=== PATIENT | male | born 1930 | race Caucasian/White ===

== ENCOUNTER 2018-09-07 15:39 | Observation (INO) ==
[2018-09-07] MEDS ORDERED: Ondansetron 4 MG/2 ML VIAL IVP ONE (15:46)
[2018-09-07] MEDS ORDERED: 0.9 % Sodium Chloride 500 ML IVC ONE (15:46)
--- NOTE | 2018-09-07 15:52 | Emergency Department Note ---
Disposition Clinical Impression: JERRI (acute kidney injury), Near syncope, History of coronary artery disease Disposition: Admitted As Inpatient Condition: Fair Referrals: Matthew Scruggs MD [Primary Care Provider] - Time of Disposition: 17:42 General Adult HPI - General Time Seen by Provider: 09/07/18 15:46 Source: patient, family Mode of arrival: ambulatory Limitations: no limitations Nursing Notes Reviewed: Yes Vital Signs Reviewed: Yes - History of Present Illness HPI Narrative: A 8-year-old male with history of hypertension, coronary bypass in 2011, NON mechanical valve replacement presents for evaluation of shortness of breath. 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 Patient was seen in the urology office earlier today. States that he had his indwelling Begum catheter changed. States that he went home and noted increasing blood in his Begum catheter. States that he wanted to get rechecked screens returned to the urology office. While in the office the patient was sitting all sudden became dizzy and lightheaded but no syncope. Patient was not complaining of any chest pain but was diaphoretic and vomiting. Patient had room air sat of 89% requiring 2 L. Patient does not have history of COPD, CHF or requiring home oxygen. Denies any focal neurologic deficits. No slurred speech. Patient denies any chest pain. States he is feeling well earlier today. Denies any blood thinners. States he does take aspirin. Pain Scale: 0 - Related Data Home Medications Medication Instructions Recorded Confirmed Aspirin [Lo-Dose Aspirin EC] 81 mg PO DAILY 11/17/17 09/07/18 Atorvastatin [Lipitor] 40 mg PO HS 11/17/17 09/07/18 Gabapentin [Neurontin] 300 mg PO HS 11/17/17 09/07/18 Garlic 1,000 mg PO DAILY 11/17/17 09/07/18 Metoprolol [Lopressor] 25 mg PO BID 11/17/17 09/07/18 Niacin [Plain Niacin] 500 mg PO DAILY 11/17/17 09/07/18 [place]-3S/Dha/Epa/Fish Oil [Fish 1 cap PO BID 11/17/17 09/07/18 Oil 1,200 mg Softgel] amLODIPine [Norvasc] 2.5 mg PO QAM 11/17/17 09/07/18 amLODIPine [Norvasc] 5 mg PO QPM 11/17/17 09/07/18 Mag Hydrox/Al Hydrox/Simeth 15 ml PO Q6HR PRN 09/07/18 09/07/18 [Maalox] Allergies Allergy/AdvReac Type Severity Reaction Status Date / Time No Known Allergies Allergy Verified 11/17/17 10:13 All systems ED: reviewed and negative except as stated. Constitutional: Denies: fever Cardiovascular: Denies: chest pain Respiratory: Denies: cough Gastrointestinal: Reports: nausea, vomiting. Denies: abdominal pain Neurological: Denies: weakness Past Medical History - Past Medical History Source: patient Medical history: Reports: coronary artery disease, GERD, hyperlipidemia, hypertension Surgical history: Reports: other Psychiatric history: Reports: no psych history - Social History Smoking Status: Unknown if ever smoked Smokeless Tobacco Status: No Alcohol use: Reports: none Drug use: Reports: none Physical Exam - General Limitations: no limitations General appearance: alert, other (Pale) - Head Head exam: atraumatic, normocephalic, normal inspection - Eye Eye exam: Present: normal appearance, PERRL, EOMI - ENT ENT exam: normal exam, normal oropharynx, mucous membranes moist - Neck Neck exam: Present: normal inspection, full ROM, trachea midline - Chest Chest inspection: Present: normal inspection - Respiratory Respiratory exam: Present: normal lung sounds bilaterally. Absent: respiratory distress - Cardiovascular Cardiovascular exam: Present: regular rate, normal rhythm, systolic murmur (3 out of 6) - Abdominal Exam Abdominal exam: Present: soft, Non-Tender. Absent: guarding, rebound - Extremities Exam Extremities exam: Present: normal inspection. Absent: pedal edema - Back Exam Back exam: Present: normal inspection - Neurological Exam Neurological exam: Present: alert, oriented X3, CN II-XII intact - Expanded Neurological Exam Patient oriented to: Present: person, place, time Speech: Present: fluid speech Cranial nerves: EOM function (II, III, IV, ): Normal, facial sensation (V): Normal, facial palsy (VII): Normal, spinal accessory function (XI): Normal, tongue deviation (XII): Normal Motor strength - LUE: 5/5 Motor strength - RUE: 5/5 Motor strength - LLE: 5/5 Motor strength - RLE: 5/5 Coma Scale Eye Opening: Spontaneous Coma Scale Motor Response: Obeys Commands Coma Scale Verbal Response: Oriented Coma Scale Total: 15 - Skin Skin exam: Present: warm, dry, intact, normal color Course Course Narrative: Patient seen and examined. Patient is not a stroke alert. Nonfocal neurologic exam. Does have a cardiac history. Patient was noted to be hypoxic. Patient has one episode of emesis. Concerns for cardiopulmonary cause of his near- syncope. Patient will get basic labs including anti-medics IV fluids. Disposition anticipated for admission. - Reevaluation(s) Reevaluation #1: Patient seen and examined. Patient's resting comfortably. Patient's asymptomatic. Family reported that urology did come in a pass a catheter. Appe ars to be functioning. Patient was not given aspirin as the patient does appear to have grossly bloody urine. Given the patient's diaphoresis nausea vomiting with concerns of near syncope patient will be admitted. Patient does have notable murmur. Patient is agreeable with said plan of care. Time: 17:37 Vital Signs Temperature 97.7 F 09/07/18 15:43 Pulse Rate 69 09/07/18 15:43 Respiratory Rate 20 09/07/18 15:43 Blood Pressure 122/80 09/07/18 15:43 O2 Sat by Pulse Oximetry 94 09/07/18 15:43 Temperature 97.7 F 09/07/18 15:43 Pulse Rate 69 09/07/18 15:43 Respiratory Rate 20 09/07/18 15:43 Blood Pressure 122/80 09/07/18 15:43 O2 Sat by Pulse Oximetry 94 09/07/18 15:43 Oxygen Delivery Oxygen Delivery Nasal Cannula Medical Decision Making - [facility] Narrative Medical decision making narrative: Patient presented for concerns of near-syncope. 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 Patient was seen urology for catheter issues. Urology was in the ED and did advance catheter which does not be functioning properly now. Patient initially was hypoxic with room air 89%. Patient's on 2 L nasal cannula. Patient also was nauseous and diaphoretic. Patient vomited once. Does have known coronary artery disease with triple bypass and a heart valve. Patient is not anticoagulated. Patient will be admitted for near-syncope episode. Patient does appear to have a notable murmur and would recommend admission for serial troponins as well as an echo. Patient does have some mild AK I was given IV fluids. Patient is agreeable said plan of care. CT scan of the head was not obtained as the patient does not have any focal neurologic deficits and no notable trauma. Patient was not given aspirin as the patient has been having gross hematuria in his catheter bag. No concerns for PE and aortic dissection. - Lab Data Lab results reviewed: Yes I reviewed the patient's lab results. Result diagrams: 09/07/18 16:01 09/07/18 16:01 Lab Results 09/07/18 09/07/18 09/07/18 Range/Units 16:01 16: 16:01 WBC 4.8 (4.3-11.1) K/mcL RBC 4.27 (4.19-5.50) M/mcL Hgb 13.3 (12.9-16.9) g/dL Hct 40.0 (37.5-50.1) % MCV 93.7 (83.0-100.0) fL MCH 31.1 (28.0-33.3) pg MCHC 33.3 (31.6-35.5) g/dL RDW 14.0 (11.5-14.5) % Plt Count 179 (140-400) K/mcL MPV 10.3 (9.4-12.4) fL Seg Neutrophils % 80.0 % Band Neutrophils % 2.0 (0-4) % Lymphocytes % 16.0 % Monocytes % 2.0 % Neutrophils # 3.9 (1.6-8.9) K/mcL Lymphocytes # 0.8 (0.6-4.6) K/mcL Monocytes # 0.1 (0.0-1.3) K/mcL Reactive Lymphocytes Present A (Not Present) Platelet Estimate Normal (Normal) PT 14.2 H (9.4-12.1) Seconds INR 1.3 Sodium (136-145) mEq/L Potassium (3.5-5.1) mEq/L Chloride (98-107) mEq/L Carbon Dioxide (23-29) mEq/L BUN (8-23) mg/dL Creatinine (0.70-1.30) mg/dL Est GFR ( Amer) (> 60) Est GFR (Non-Af Amer) (> 60) BUN/Creatinine Ratio (6-26) Glucose (70-105) mg/dL Calculated Osmolality (280-300) Calcium (8.6-10.3) mg/dL Troponin I (< 0.04) ng/mL B-Natriuretic Peptide 129 H (Less than 100) pg/mL Blood Type Antibody Screen 09/07/18 09/07/18 Range/Units 16:01 16:37 WBC (4.3-11.1) K/mcL RBC (4.19-5.50) M/mcL Hgb (12.9-16.9) g/dL Hct (37.5-50.1) % MCV (83.0-100.0) fL MCH (28.0-33.3) pg MCHC (31.6-35.5) g/dL RDW (11.5-14.5) % Plt Count (140-400) K/mcL MPV (9.4-12.4) fL Seg Neutrophils % % Band Neutrophils % (0-4) % Lymphocytes % % Monocytes % % Neutrophils # (1.6-8.9) K/mcL Lymphocytes # (0.6-4.6) K/mcL Monocytes # (0.0-1.3) K/mcL Reactive Lymphocytes (Not Present) Platelet Estimate (Normal) PT (9.4-12.1) Seconds INR Sodium 137 (136-145) mEq/L Potassium 3.9 (3.5-5.1) mEq/L Chloride 105 (98-107) mEq/L Carbon Dioxide 26 (23-29) mEq/L BUN 30 H (8-23) mg/dL Creatinine 1.56 H (0.70-1.30) mg/dL Est GFR ( Amer) 51 L (> 60) Est GFR (Non-Af Amer) 42 L (> 60) BUN/Creatinine Ratio 19 (6-26) Glucose 115 H (70-105) mg/dL Calculated Osmolality 291 (280-300) Calcium 9.3 (8.6-10.3) mg/dL Troponin I < 0.03 (< 0.04) ng/mL B-Natriuretic Peptide (Less than 100) pg/mL Blood Type B POSITIVE Antibody Screen POSITIVE - Radiology Data Radiology results reviewed: Yes I reviewed the patient's radiology results. Chest X-Ray 09/07/18 15:46 IMPRESSION: No evidence of pulmonary edema or focal infiltrate D/ / Juvenal Jones MD / Juvenal Jones MD Interpreting Provider: Juvenal Jones MD - EKG Data EKG #1 EKG attestation: Yes I reviewed and interpreted this EKG. EKG shows normal: sinus rhythm Rate: normal Rhythm: NSR [place]/QRS: normal Q waves: v1 T wave inversions noted in: aVL Interpretation: no acute changes, nonspecific ST-T wave changes S.B.A.R. - S.B.A.RDoreen Situation: Demographics Background: Presenting Complaint Assessment: Vital Signs, Course and respsone to treatment, Patient/Family Expectation Recommendation: Barrier(s) to disposition, Recommendation based on pending studies, treatments, or consults S.B.A.RDoreen Report Given to: Dr. Kelsi Major Repor Time: 17:52 Attestation Statement - Attestation Attestation: I, Jv Vogel DO, examined this patient [id number] and my medical decision-making was reviewed with Dr. Sage Maher, Resident Physician. I agree with the documented findings, disposition and treatment plan as described except to the extent set forth below. I personally supervised and was present for the kraus/critical portions of the procedures completed by the resident documented below. Please see my progress notes for details.
--- NOTE | 2018-09-07 16:22 | Event Note ---
Date of Encounter: 09/07/18 Time of Encounter: 16:21 Patient was evaluated in the emergency department. Patient's catheter balloon was deflated and I was able to advance the patient's catheter into the bladder with clear urine returned into the catheter bag. Patient will need to keep this catheter in. Expectation that he will have some blood around the meatus as well as around the catheter for next day or 2. Please call with any questions.
[2018-09-07 16:34] LABS: Hemoglobin 13.3 g/dL (12.9-16.9); Mean Corpuscular HGB Conc 33.3 g/dL (31.6-35.5); Mean Corpuscular Hemoglobin 31.1 pg (28.0-33.3); Mean Corpuscular Volume 93.7 fL (83.0-100.0); Mean Platelet Volume 10.3 fL (9.4-12.4); Platelet Count 179 K/mcL (140-400); Red Blood Count 4.27 M/mcL (4.19-5.50)
[2018-09-07 16:42] LABS: INR 1.3; Prothrombin Time 14.2 Seconds (9.4-12.1)
[2018-09-07 16:46] LABS: BUN/Creatinine Ratio 19 (6-26); Blood Urea Nitrogen 30 mg/dL (8-23); Calcium 9.3 mg/dL (8.6-10.3); Carbon Dioxide 26 mEq/L (23-29); Chloride 105 mEq/L (98-107); Glucose 115 mg/dL (70-105); Osmolality,Calculated 291 (280-300); Potassium 3.9 mEq/L (3.5-5.1); Sodium 137 mEq/L (136-145); Troponin I < 0.03 ng/mL (< 0.04); eGFR For Non-African Americans 42 (> 60)
[2018-09-07 17:05] LABS: Lymphocytes # 0.8 K/mcL (0.6-4.6); Monocytes # 0.1 K/mcL (0.0-1.3); Neutrophils # 3.9 K/mcL (1.6-8.9); Platelet Estimate Normal (Normal); Reactive Lymphocytes Present (Not Present)
--- NOTE | 2018-09-07 18:30 | Emergency Department Note ---
Disposition Clinical Impression: JERRI (acute kidney injury), Near syncope, History of coronary artery disease Disposition: Admitted As Inpatient Condition: Fair Referrals: Matthew Scruggs MD [Primary Care Provider] - Time of Disposition: 18:30 General Adult HPI - General Chief complaint: ED Dizziness Stated complaint: Xuan Time Seen by Provider: 09/07/18 15:46 Source: patient, family Mode of arrival: ambulatory Limitations: no limitations - History of Present Illness Pain Scale: 0 - Related Data Home Medications Medication Instructions Recorded Confirmed Aspirin [Lo-Dose Aspirin EC] 81 mg PO DAILY 11/17/17 09/07/18 Atorvastatin [Lipitor] 40 mg PO HS 11/17/17 09/07/18 Gabapentin [Neurontin] 300 mg PO HS 11/17/17 09/07/18 Garlic 1,000 mg PO DAILY 11/17/17 09/07/18 Metoprolol [Lopressor] 25 mg PO BID 11/17/17 09/07/18 Niacin [Plain Niacin] 500 mg PO DAILY 11/17/17 09/07/18 [place]-3S/Dha/Epa/Fish Oil [Fish 1 cap PO BID 11/17/17 09/07/18 Oil 1,200 mg Softgel] amLODIPine [Norvasc] 2.5 mg PO QAM 11/17/17 09/07/18 amLODIPine [Norvasc] 5 mg PO QPM 11/17/17 09/07/18 Mag Hydrox/Al Hydrox/Simeth 15 ml PO Q6HR PRN 09/07/18 09/07/18 [Maalox] Allergies Allergy/AdvReac Type Severity Reaction Status Date / Time No Known Allergies Allergy Verified 11/17/17 10:13 Constitutional: Denies: fever Cardiovascular: Denies: chest pain Respiratory: Denies: cough Gastrointestinal: Reports: nausea, vomiting. Denies: abdominal pain Neurological: Denies: weakness Past Medical History - Past Medical History Medical history: Reports: coronary artery disease, GERD, hyperlipidemia, hypertension Surgical history: Reports: other Psychiatric history: Reports: no psych history - Social History Smoking Status: Unknown if ever smoked Smokeless Tobacco Status: No Alcohol use: Reports: none Drug use: Reports: none Physical Exam - General Limitations: no limitations General appearance: alert, other (Pale) Course Vital Signs Temperature 97.7 F 09/07/18 15:43 Pulse Rate 69 09/07/18 15:43 Respiratory Rate 20 09/07/18 15:43 Blood Pressure 122/80 09/07/18 15:43 O2 Sat by Pulse Oximetry 94 09/07/18 15:43 Temperature 97.7 F 09/07/18 15:43 Pulse Rate 69 09/07/18 15:43 Respiratory Rate 20 09/07/18 15:43 Blood Pressure 122/80 09/07/18 15:43 O2 Sat by Pulse Oximetry 94 09/07/18 15:43 Oxygen Delivery Oxygen Delivery Nasal Cannula Medical Decision Making - Lab Data Result diagrams: 09/07/18 16:01 09/07/18 16:01 Lab Results 09/07/18 09/07/18 09/07/18 Range/Units 16: 16: 16:01 WBC 4.8 (4.3-11.1) K/mcL RBC 4.27 (4.19-5.50) M/mcL Hgb 13.3 (12.9-16.9) g/dL Hct 40.0 (37.5-50.1) % MCV 93.7 (83.0-100.0) fL MCH 31.1 (28.0-33.3) pg MCHC 33.3 (31.6-35.5) g/dL RDW 14.0 (11.5-14.5) % Plt Count 179 (140-400) K/mcL MPV 10.3 (9.4-12.4) fL Seg Neutrophils % 80.0 % Band Neutrophils % 2.0 (0-4) % Lymphocytes % 16.0 % Monocytes % 2.0 % Neutrophils # 3.9 (1.6-8.9) K/mcL Lymphocytes # 0.8 (0.6-4.6) K/mcL Monocytes # 0.1 (0.0-1.3) K/mcL Reactive Lymphocytes Present A (Not Present) Platelet Estimate Normal (Normal) PT 14.2 H (9.4-12.1) Seconds INR 1.3 Sodium (136-145) mEq/L Potassium (3.5-5.1) mEq/L Chloride (98-107) mEq/L Carbon Dioxide (23-29) mEq/L BUN (8-23) mg/dL Creatinine (0.70-1.30) mg/dL Est GFR ( Amer) (> 60) Est GFR (Non-Af Amer) (> 60) BUN/Creatinine Ratio (6-26) Glucose (70-105) mg/dL Calculated Osmolality (280-300) Calcium (8.6-10.3) mg/dL Troponin I (< 0.04) ng/mL B-Natriuretic Peptide 129 H (Less than 100) pg/mL Blood Type Antibody Screen 09/07/18 09/07/18 Range/Units 16:01 16:37 WBC (4.3-11.1) K/mcL RBC (4.19-5.50) M/mcL Hgb (12.9-16.9) g/dL Hct (37.5-50.1) % MCV (83.0-100.0) fL MCH (28.0-33.3) pg MCHC (31.6-35.5) g/dL RDW (11.5-14.5) % Plt Count (140-400) K/mcL MPV (9.4-12.4) fL Seg Neutrophils % % Band Neutrophils % (0-4) % Lymphocytes % % Monocytes % % Neutrophils # (1.6-8.9) K/mcL Lymphocytes # (0.6-4.6) K/mcL Monocytes # (0.0-1.3) K/mcL Reactive Lymphocytes (Not Present) Platelet Estimate (Normal) PT (9.4-12.1) Seconds INR Sodium 137 (136-145) mEq/L Potassium 3.9 (3.5-5.1) mEq/L Chloride 105 (98-107) mEq/L Carbon Dioxide 26 (23-29) mEq/L BUN 30 H (8-23) mg/dL Creatinine 1.56 H (0.70-1.30) mg/dL Est GFR ( Amer) 51 L (> 60) Est GFR (Non-Af Amer) 42 L (> 60) BUN/Creatinine Ratio 19 (6-26) Glucose 115 H (70-105) mg/dL Calculated Osmolality 291 (280-300) Calcium 9.3 (8.6-10.3) mg/dL Troponin I < 0.03 (< 0.04) ng/mL B-Natriuretic Peptide (Less than 100) pg/mL Blood Type B POSITIVE Antibody Screen POSITIVE Attestation Statement - Attestation Attestation: I, Jv Vogel DO, examined this patient [id number] and my medical decision-making was reviewed with Dr. Sage Maher, Resident Physician. I agree with the documented findings, disposition and treatment plan as described except to the extent set forth below. I personally supervised and was present for the kraus/critical portions of the procedures completed by the resident doc umented below. Please see my progress notes for details. 88-year-old male presents emergency room for evaluation of near-syncope. Patient was seen in the urology office today to have a Begum catheter replaced. The procedure was performed and then shortly afterwards the patient was having bright red blood from the Begum catheter and discomfort. He sat down on the waiting room and the urology office to be evaluated felt lightheaded and almost passed out. Patient denied any chest pain shortness of breath headache vision changes nausea vomiting or diarrhea. Denies any fevers or chills. He has not had any recent illnesses or other symptoms. On presentation here, the patient was called out as a medical assist. Patient was alert and speaking in full sentences at the time of evaluation by our medical assist team. Patient presents emergency room stable vital signs. Initial blood pressure at the time the patient feeling lightheaded was 70/50. This was directly after the patient had the Begum catheter placed. On arrival here in the emergency room urologist Dr. Dueñas came to the bed in the emergency department and advance the Begum catheter into the urinary bladder. The presenting symptoms could be secondary to a sympathetic stimulation from the Begum catheter bulb being enlarged and inflated inside of the urethra. Patient is now acting appropriately mentating appropriately at this time. Patient will have detailed workup for syncope versus near-syncope unknown etiology. Cardiac evaluation along with chest x-ray EKG CBC chemistry troponin will be collected. Patient is otherwise clinically stable. Physical exam shows a well-appearing gentleman in no specific distress. Skin color was pale and diaphoretic on presentation consistent with a near-syncopal event. Lungs are clear. Heart is regular. Abdomen is soft. Ovaries are normal. Patient's baseline mentation as confirmed by the family at this time. No other acute issues noted. See detailed documentation the physical exam, medical intervention, medical decision-making and disposition in the resident physician's note. No critical care by the patient's treatment course at this time. 1800 Patient is clinically stable. Patient's laboratory workup and treatment course here in the emergency room and unremarkable. Conversation was had with the hospitals for admission secondary to concern for persistent bleeding from the full catheter site as well as a near syncopal event. The hospitalist Dr. Dolan reviewed the case and no other questions or concerns. Consultation to urology will be placed if need be. Patient is otherwise currently stable. Patient will be monitored here in the emergency department until the admission process is completed.
[2018-09-07] MEDS ORDERED: Acetaminophen 325 MG TABLET PO PRN (18:38)
[2018-09-07] MEDS ORDERED: Ondansetron 4 MG/2 ML VIAL IVP PRN (18:38)
[2018-09-07] MEDS ORDERED: Naloxone 0.4 MG/ML INJ IVP PRN (18:38)
[2018-09-07] MEDS ORDERED: Ringers Solution, Lactated 1,000 ML IVC SCH (18:45)
--- NOTE | 2018-09-07 18:46 | Internal Med History&Physical ---
Date of Encounter: 09/07/18 Time of Encounter: 18:44 Internal Medicine - H&P: HPI Chief complaint: Syncope Admitted From: Emergency Dept Plans for Post Hospital Care: Home History of present illness: Mr. Lorenzo is a 88 year old male with history of coronary artery disease, hypertension, status post aortic valve replacement with porcine valve in 2011 presents with syncopal episode. Patient states that she was in the urologist office this morning and had his catheter changed. He went home from this appointment and had urethral burning and hematuria. He called the urologist and the instructed him to come back and while in the waiting room patient states that he began to feel lightheaded and had a syncopal episode. He states he completely blacked out. Daughter is at bedside who states he was sitting when he blacked out and did not fall. She states that he is probably out of it for about a couple minutes. Patient states that this episode felt similar to the episodes he was having prior to his valve replacement. Prior to this event he been in his normal state of health had been feeling well. He denies any chest pain, palpitations, shortness of breath, headache, vision changes, numbness, tingling, weakness. He states he has been eating and drinking well. Discussed with patient who wishes to be full code Past Med Surg Social Fam HX - Past Medical History Medical history: coronary artery disease, GERD, hyperlipidemia, hypertension Additional medical history: BPH. CABG Psychiatric history: no psych history - Past Surgical History Surgical History: other Additional surgical history: RIGHT KNEE. CATARACT - Social History Smoking Status: Former smoker (Quit in 1988) Smokeless Tobacco Status: No Alcohol use: none Drug use: none - Additional Family History Additional family history: Patient reports history of cardiac disease in his father and brother. Internal Medicine - H&P: Meds Aspirin [Lo-Dose Aspirin EC] 81 mg PO DAILY 11/17/17 [History] Atorvastatin [Lipitor] 40 mg PO HS 11/17/17 [History] Gabapentin [Neurontin] 300 mg PO HS 11/17/17 [History] Garlic 1,000 mg PO DAILY 11/17/17 [History] Metoprolol [Lopressor] 25 mg PO BID 11/17/17 [History] Niacin [Plain Niacin] 500 mg PO DAILY 11/17/17 [History] [place]-3S/Dha/Epa/Fish Oil [Fish Oil 1,200 mg Softgel] 1 cap PO BID 11/17/17 [History] amLODIPine [Norvasc] 2.5 mg PO QAM 11/17/17 [History] amLODIPine [Norvasc] 5 mg PO QPM 11/17/17 [History] Mag Hydrox/Al Hydrox/Simeth [Maalox] 15 ml PO Q6HR PRN 09/07/18 [History] Allergy/AdvReac Type Severity Reaction Status Date / Time No Known Allergies Allergy Verified 11/17/17 10:13 All Systems PM: A 10-system review of systems was performed and is negative for pertinent findings except as documented above in the HPI. Review of systems: 10 point review of systems was obtained and negative other than stated. - Constitutional Constitutional: no chills, no fever(s) - EENT Eyes: no change in vision - Cardiovascular Cardiovascular ROS IM: lightheadedness, syncope, no chest pain, no edema, no irregular heart rhythm, no palpitations - Respiratory Respiratory: no dyspnea, no chest congestion, no excessive phlegm production, no change in phlegm color - Gastrointestinal Gastrointestinal: no abdominal pain, no diarrhea, no nausea, no vomiting - Genitourinary Genitourinary ROS male: no dysuria - Constitutional Vitals: Temp Pulse Resp BP Pulse Ox 97.7 F 69 20 122/80 94 09/07/18 15:43 09/07/18 15:43 09/07/18 15:43 09/07/18 15:43 09/07/18 15:43 General appearance: Present: A&O X 3, pleasant, no acute distress Exam: . - Head Head exam: Present: atraumatic, normal inspection, normocephalic - Eye Eye exam: Present: EOMI, PERRL - ENT ENT exam: Present: mucous membranes moist, normal oropharynx - Neck Neck exam general surgery: Present: full ROM, supple. Absent: tenderness - Respiratory Respiratory exam: Present: CTAB. Absent: rales, rhonchi, wheezes - Cardiovascular Cardiovascular exam: Present: RRR, systolic murmur (2/6 systolic). Absent: gallop, irregular rhythm, rubs - GI/Abdominal GI/Abdominal exam: Present: normal bowel sounds, soft. Absent: distended, tenderness - Additional comments: Urinary catheter present - Extremities Exam Extremities exam: Present: warm, radial pulses palpable and symmetrical. Absent: calf tenderness, pedal edema, tenderness - Neurological Exam Neurological exam: Present: alert, CN II-XII intact, oriented X3, no focal defic its, strengths equal and symetr throughout. Absent: facial droop, speech deficit - Psychiatric Psychiatric exam: Present: normal affect, normal mood - Skin Skin exam: Present: dry, intact, warm Internal Med - H&P Results - Labs CBC & Chem 7: 09/07/18 16:01 09/07/18 16:01 Labs: Short CBC 09/07/18 Range/Units 16:01 WBC 4.8 (4.3-11.1) K/mcL Hgb 13.3 (12.9-16.9) g/dL Hct 40.0 (37.5-50.1) % Plt Count 179 (140-400) K/mcL Neutrophils # 3.9 (1.6-8.9) K/mcL BMP 09/07/18 16:01 Sodium 137 Potassium 3.9 Chloride 105 Carbon Dioxide 26 BUN 30 H Creatinine 1.56 H Glucose 115 H Calcium 9.3 Cardiac Enzymes 09/07/18 Range/Units 16:01 Troponin I < 0.03 (< 0.04) ng/mL - Impressions ITS Impressions Chest X-Ray 09/07/18 15:46 IMPRESSION: No evidence of pulmonary edema or focal infiltrate D/ / Juvenal Jones MD / Juvenal Jones MD Interpreting Provider: Juvenal Jones MD - Assessment and Plan (1) Syncope Current Visit: Yes Status: Acute Assessment and plan: Patient had syncopal episode at urologists office today. Etiology unclear but most likely cause at this point is vasovagal episode given his catheter manipula tion today. Transient hypotension is also a possibility as the patient states that when he checks his blood pressure home sometimes it is in the low 100s and he takes amlodipine twice a day when this is usually a daily medication. Patient does have a history of porcine aortic valve replacement and she did have syncopal episodes similar to this prior to his valve replacement. Patient also has JERRI indicative of possible hypovolemia. We will decrease patient's home blood pressure medication and hold amlodipine and decrease metoprolol to 12.5 twice a day. Telemetry, EKG reviewed and unremarkable. Check limited echo to evaluate aortic valve. Echo from June 2018 reviewed that showed normal valve gradients. Qualifiers: Syncope type: unspecified Qualified Code(s): R55 - Syncope and collapse (2) JERRI (acute kidney injury) Current Visit: Yes Status: Acute Assessment and plan: Creatinine 1.56 on presentation, baseline appears to be around 1. Possibly hypovolemia but postobstructive uropathy is also consideration given the patient's BPH and chronic catheter use. Check UA, urine creatinine, urine sodium, retroperitoneal ultrasound. Recheck BMP in the morning (3) H/O aortic valve replacement with porcine valve Current Visit: Yes Status: Acute Assessment and plan: Patient had a bioprosthetic heart valve placed in 2011. Has been doing well with this. Unlikely but possible source of the patient's syncopal was dysfunction with this valve, we will check limited echo as above. (4) Coronary artery disease Current Visit: Yes Status: Acute Assessment and plan: Patient coronary bypass in 2011. Chest pain-free, EKG shows no ischemic ch anges. Continue aspirin, statin, beta isabel. Qualifiers: Coronary Disease-Associated Artery/Lesion type: [place] artery [place] vs. transplanted heart: [place] heart Associated angina: without angina Qualified Code(s): I25.10 - Atherosclerotic heart disease of [place] coronary artery without angina pectoris (5) Hypertension Current Visit: Yes Status: Acute Assessment and plan: Blood pressure under good control and given the patient's twice a day amlodipine dosing concerning his blood pressure may be running low. We will hold amlodipine and decrease metoprolol. Qualifiers: Hypertension type: essential hypertension Qualified Code(s): I10 - Essential (primary) hypertension (6) BPH (benign prostatic hyperplasia) Current Visit: Yes Status: Acute Assessment and plan: Patient has chronic Begum catheter due to BPH symptoms causing urinary retention and frequent infections. Continue Begum catheterization, check UA. Qualifiers: Lower urinary tract symptom presence: symptoms absent Qualified Code(s): N40.0 - Benign prostatic hyperplasia without lower urinary tract symptoms (7) DVT prophylaxis Current Visit: Yes Status: Acute Assessment and plan: Heparin 5000 units subcutaneous twice a day - Time Spent With Patient Total time spent is greater than 50% in coordination of care (as documented) at patient's floor/unit and/or counseling patient:
[2018-09-07 20:43] LABS: Bilirubin,Urine Negative (Negative); Blood,Urine Small (Negative); Clarity,Urine Clear (Clear); Color,Urine Yellow (Yellow); Glucose,Urine (UA) Normal (Normal); Ketones,Urine Trace mg/dL (Negative); Leukocyte Esterase,Urine Moderate (Negative); Nitrite,Urine Negative (Negative); Protein,Urine Negative (Neg-Trace); Urobilinogen,Urine Normal (Normal)
[2018-09-07 20:45] LABS: Bacteria,Urine None Seen per hpf (None-Few); Hyaline Casts,Urine None Seen per lpf (None-Few); RBC,Urine 0-3 per hpf (0-3); Squamous Epithelial Cell,Urine Few per lpf (None-Few)
[2018-09-07 20:48] LABS: Sodium, Urine 46.1 mEq/L
[2018-09-07] MEDS ORDERED: Gabapentin 300 MG CAPSULE PO SCH (21:00)
[2018-09-07] MEDS ORDERED: Perflutren Lipid Microsphere 1.3 ML in 0.9 % Sodium Chloride 8.7 ML IVP ONE (22:12)
[2018-09-08 05:00] LABS: Basophils % 0.3 %; Eosinophils % 0.2 %; Hematocrit 39.2 % (37.5-50.1); Hemoglobin 13.1 g/dL (12.9-16.9); Immature Granulocytes % 0.5 % (0-4); Lymphocytes # 0.3 K/mcL (0.6-4.6); Lymphocytes % 2.6 %; Mean Corpuscular HGB Conc 33.4 g/dL (31.6-35.5); Mean Corpuscular Hemoglobin 30.8 pg (28.0-33.3); Mean Corpuscular Volume 92.2 fL (83.0-100.0); Mean Platelet Volume 10.3 fL (9.4-12.4); Monocytes # 0.6 K/mcL (0.0-1.3); Monocytes % 5.1 %; Neutrophils # 11.4 K/mcL (1.6-8.9); Platelet Count 140 K/mcL (140-400); Red Blood Count 4.25 M/mcL (4.19-5.50); Segmented Neutrophils % 91.3 %
[2018-09-08 05:15] LABS: INR 1.3; Prothrombin Time 15.1 Seconds (9.4-12.1)
[2018-09-08 05:17] LABS: BUN/Creatinine Ratio 21 (6-26); Blood Urea Nitrogen 23 mg/dL (8-23); Calcium 9.1 mg/dL (8.6-10.3); Carbon Dioxide 27 mEq/L (23-29); Chloride 104 mEq/L (98-107); Glucose 113 mg/dL (70-105); Magnesium 1.8 mg/dL (1.6-2.6); Osmolality,Calculated 290 (280-300); Potassium 4.4 mEq/L (3.5-5.1); Sodium 138 mEq/L (136-145); eGFR For Non-African Americans > 60 (> 60)
[2018-09-08] MEDS ORDERED: *HR* Heparin 5,000 UNIT/ML VIAL SQ SCH (06:00)
[2018-09-08] MEDS ORDERED: Aspirin Enteric Coated 81 MG Tablet PO SCH (09:00)
--- NOTE | 2018-09-08 10:54 | Discharge Summary ---
- NOTES TO OUTPATIENT PROVIDER Notes to Outpatient Provider: Follow up with PCP in one week. Follow up with urology as scheduled. Date of Encounter: 09/08/18 Time of Encounter: 10:52 - Discharge Diagnosis (1) Syncope Priority: Primary Status: Acute Qualifiers: Syncope type: unspecified Qualified Code(s): R55 - Syncope and collapse (2) JERRI (acute kidney injury) Priority: Primary Status: Acute (3) Coronary artery disease Priority: Secondary Status: Acute Qualifiers: Coronary Disease-Associated Artery/Lesion type: [place] artery [place] vs. transplanted heart: [place] heart Associated angina: without angina Qualified Code(s): I25.10 - Atherosclerotic heart disease of [place] coronary artery without angina pectoris (4) H/O aortic valve replacement with porcine valve Priority: Secondary Status: Acute (5) Hypertension Priority: Secondary Status: Acute Qualifiers: Hypertension type: essential hypertension Qualified Code(s): I10 - Essential (primary) hypertension (6) BPH (benign prostatic hyperplasia) Priority: Secondary Status: Acute Qualifiers: Lower urinary tract symptom presence: symptoms absent Qualified Code(s): N40.0 - Benign prostatic hyperplasia without lower urinary tract symptoms (7) DVT prophylaxis Priority: Secondary Status: Acute Hospital course: Mr. Lorenzo is a 88 year old male with history of coronary artery disease, hypertension, status post aortic valve replacement with porcine valve in 2011, chronic urinary retention with chronic indwelling Lal catheter pt presented to ER with syncopal episode. Patient stated that his lal catheter changed y/d morning, after that he developed urethral burning and hematuria. He went back to urologist to readjust the catheter, while he was in the waiting room he passed out a couple of minutes. No seizure activity noticed. Pt was sent to ER for further care. He was seen by urologist in the ER and replaced his Lal catheter. He still has some bleeding out side the catheter. He was admitted in the hospital and placed him on monitor tech. Reviewed his 2D Echo from 07/13 showed preserved LVEF and moderate LV diastolic dysfunction noticed. Normal aortic valve function noticed. His serial troponin came back is negative. His syncopal episode seems to be vaso vagal reaction due to pain associated with Lal catheter change. He did have mild JERRI with IV hydration his creatinine improved. His BP seems to be stable. Patient stated he is feeling better today. No more syncopal episodes. Still having mild bleeding around at the urethral meatus. Talked to urologist Dr. Dueñas, who suggsted it will get better in next few days, no interventions recommended. So will dc him home in stable condition today after his Echo report. - Time Spent with Patient Total time spent providing and/or coordinating discharge services: - Discharge Medications Prescriptions: Continue amLODIPine [Norvasc] 2.5 mg PO QAM amLODIPine [Norvasc] 5 mg PO QPM Aspirin [Lo-Dose Aspirin EC] 81 mg PO DAILY Atorvastatin [Lipitor] 40 mg PO HS Gabapentin [Neurontin] 300 mg PO HS Garlic 1,000 mg PO DAILY Metoprolol [Lopressor] 25 mg PO BID Niacin [Plain Niacin] 500 mg PO DAILY [place]-3S/Dha/Epa/Fish Oil [Fish Oil 1,200 mg Softgel] 1 cap PO BID Mag Hydrox/Al Hydrox/Simeth [Maalox] 15 ml PO Q6HR PRN PRN Reason: GERD Home Medications: Aspirin [Lo-Dose Aspirin EC] 81 mg PO DAILY 11/17/17 [History] Atorvastatin [Lipitor] 40 mg PO HS 11/17/17 [History] Gabapentin [Neurontin] 300 mg PO HS 11/17/17 [History] Garlic 1,000 mg PO DAILY 11/17/17 [History] Metoprolol [Lopressor] 25 mg PO BID 11/17/17 [History] Niacin [Plain Niacin] 500 mg PO DAILY 11/17/17 [History] [place]-3S/Dha/Epa/Fish Oil [Fish Oil 1,200 mg Softgel] 1 cap PO BID 11/17/17 [History] amLODIPine [Norvasc] 2.5 mg PO QAM 11/17/17 [History] amLODIPine [Norvasc] 5 mg PO QPM 11/17/17 [History] Mag Hydrox/Al Hydrox/Simeth [Maalox] 15 ml PO Q6HR PRN 09/07/18 [History] Allergies/Adverse Reactions: Allergy/AdvReac Type Severity Reaction Status Date / Time No Known Allergies Allergy Verified 11/17/17 10:13 Date of admission: 09/07/18 21:24 Primary care physician: Matthew Scruggs MD - Constitutional Vitals: Temp Pulse Resp BP Pulse Ox 99.2 F 82 16 164/66 92 09/08/18 06:50 09/08/18 06:50 09/08/18 06:50 09/08/18 06:50 09/08/18 06:50 General appearance: Present: A&O X 3, pleasant, no acute distress Exam: Gen: Alert, awake, Oriented to time,place and person Chest: Diminished breath sounds B/L, No wheezing, No crackles, No rales Heart: S1S2+ RRR No murmurs Abd: Soft, NT, BS +, No organomegaly Ext: No edema, pulses are palpable, No calf tenderness : Lal+.. Mild bleeding / oozing noticed around the urehtral meatus Neuro : Benign findings Skin: No rash. - Patient Status Disposition: Home, Self-Care Condition: Good Overall status at discharge: patient is back to baseline - Discharge Instructions Follow Up With: Matthew Scruggs MD [Primary Care Provider] - Isaac Dueñas MD [Partnered Physician] - Forms: ED Satisfaction Letter - Diet and Activity Activity: increase activity as tolerated Diet: low salt diet
[2018-09-08 12:22] VITALS: BP 171/74
--- NOTE | 2018-09-08 18:03 | Electrocardiograph Report ---
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
== END 2018-09-08 13:33 | disposition home or self-care (01) ==
LOC: 3BNU 15:39 → EMEROOARM 15:39 → SUATTDRO 21:24 → 3BNU 21:47
PROVIDERS: ADMIT Hospitalist; ATTEND Family Medicine

== ENCOUNTER 2019-04-03 17:59 | Inpatient (IN) ==
[2019-04-03 19:10] LABS: Basophils % 0.2 %; Eosinophils % 0.1 %; Hematocrit 39.4 % (37.5-50.1); Hemoglobin 13.2 g/dL (12.9-16.9); Immature Granulocytes % 0.6 % (0-4); Lymphocytes # 0.4 K/mcL (0.6-4.6); Lymphocytes % 4.2 %; Mean Corpuscular HGB Conc 33.5 g/dL (31.6-35.5); Mean Corpuscular Hemoglobin 31.2 pg (28.0-33.3); Mean Corpuscular Volume 93.1 fL (83.0-100.0); Monocytes # 0.8 K/mcL (0.0-1.3); Monocytes % 8.5 %; Neutrophils # 7.8 K/mcL (1.6-8.9); Platelet Count 132 K/mcL (140-400); Red Blood Count 4.23 M/mcL (4.19-5.50); Red Cell Distribution Width 13.9 % (11.5-14.5); Segmented Neutrophils % 86.4 %
[2019-04-03 19:33] LABS: Albumin 3.4 g/dL (3.5-5.7); Albumin/Globulin Ratio 1.1 (1.1-2.2); Bilirubin,Total 0.6 mg/dL (0.3-1.0); Calcium 8.7 mg/dL (8.6-10.3); Globulin 3.2 g/dL (2.4-3.5); Total Protein 6.6 g/dL (6.4-8.9)
[2019-04-03] MEDS ORDERED: Potassium Chloride Elixir 20 MEQ/15 ML UDC PO ONE (19:34)
[2019-04-03 19:38] LABS: Troponin I 0.16 ng/mL (< 0.04)
[2019-04-03] MEDS ORDERED: Azithromycin 500 MG in 0.9 % Sodium Chloride 250 ML IVPB ONE (19:45)
[2019-04-03 19:47] LABS: Thyroid Stimulating Hormone 3.371 mcIU/mL (0.340-5.600)
[2019-04-03] MEDS ORDERED: 0.9 % Sodium Chloride 1,000 ML IVC ONE (19:58)
[2019-04-03] MEDS ORDERED: Aspirin 325 MG TABLET PO ONE (19:58)
[2019-04-03 19:59] LABS: Bilirubin,Urine Negative (Negative); Blood,Urine Large (Negative); Clarity,Urine Turbid (Clear); Color,Urine Yellow (Yellow); Glucose,Urine (UA) Normal (Normal); Ketones,Urine Negative (Negative); Leukocyte Esterase,Urine Large (Negative); Nitrite,Urine Positive (Negative); Protein,Urine 100 mg/dL (Neg-Trace); Specific Gravity,Urine 1.011 (1.010-1.025); Urobilinogen,Urine Normal (Normal)
[2019-04-03 20:01] LABS: Bacteria,Urine Few per hpf (None-Few); RBC,Urine 15-30 per hpf (0-3); WBC,Urine 15-30 per hpf (0-3)
[2019-04-03 20:08] LABS: Platelet Estimate Decreased (Normal)
[2019-04-03] MEDS ORDERED: 0.9 % Sodium Chloride 1,000 ML IVC SCH (22:30)
[2019-04-04 03:16] LABS: Influenza A PCR Negative (Negative); Influenza B PCR Negative (Negative)
[2019-04-04] MEDS ORDERED: *HR* Heparin 5,000 UNIT/ML VIAL SQ SCH (06:00)
[2019-04-04 06:19] LABS: Basophils % 0.3 %; Eosinophils % 0.1 %; Hematocrit 34.1 % (37.5-50.1); Hemoglobin 11.7 g/dL (12.9-16.9); Immature Granulocytes % 0.9 % (0-4); Lymphocytes % 7.3 %; Mean Corpuscular HGB Conc 34.3 g/dL (31.6-35.5); Mean Corpuscular Hemoglobin 31.3 pg (28.0-33.3); Mean Corpuscular Volume 91.2 fL (83.0-100.0); Mean Platelet Volume 10.4 fL (9.4-12.4); Monocytes # 1.1 K/mcL (0.0-1.3); Monocytes % 8.3 %; Platelet Count 121 K/mcL (140-400); Red Blood Count 3.74 M/mcL (4.19-5.50); Red Cell Distribution Width 14.4 % (11.5-14.5); Segmented Neutrophils % 83.1 %; White Blood Count 13.4 K/mcL (4.3-11.1)
[2019-04-04 06:23] LABS: Neutrophils # 11.1 K/mcL (1.6-8.9)
[2019-04-04 06:41] LABS: Platelet Estimate Normal (Normal)
[2019-04-04 06:43] LABS: Alanine Aminotransferase 10 Units/L (7-52); Albumin 3.2 g/dL (3.5-5.7); Albumin/Globulin Ratio 1.1 (1.1-2.2); Alkaline Phosphatase 58 Units/L (34-104); Aspartate Amino Transferase 37 Units/L (13-39); BUN/Creatinine Ratio 25 (6-26); Bilirubin,Total 0.5 mg/dL (0.3-1.0); Blood Urea Nitrogen 31 mg/dL (8-23); Calcium 8.4 mg/dL (8.6-10.3); Carbon Dioxide 25 mEq/L (23-29); Chloride 109 mEq/L (98-107); Globulin 2.8 g/dL (2.4-3.5); Glucose 109 mg/dL (70-105); Osmolality,Calculated 293 (280-300); Potassium 4.3 mEq/L (3.5-5.1); Sodium 138 mEq/L (136-145); eGFR For African Americans > 60 (> 60); eGFR For Non-African Americans 54 (> 60)
[2019-04-04] MEDS ORDERED: *HR* Heparin 5,000 UNIT/ML VIAL IVP PRN ×2 (06:54)
[2019-04-04] MEDS ORDERED: *HR* Heparin 5,000 UNIT/ML VIAL IVP ONE (06:54)
[2019-04-04] MEDS ORDERED: Heparin 25,000 UNIT/250 ML D5W 25,000 UNIT/250 ML IV.SOLN IVC SCH (07:00)
[2019-04-04 07:43] LABS: Hematocrit 33.8 % (37.5-50.1); Hemoglobin 11.7 g/dL (12.9-16.9); Mean Corpuscular HGB Conc 34.6 g/dL (31.6-35.5); Mean Corpuscular Hemoglobin 31.5 pg (28.0-33.3); Mean Corpuscular Volume 90.9 fL (83.0-100.0); Mean Platelet Volume 10.4 fL (9.4-12.4); Platelet Count 124 K/mcL (140-400); Red Blood Count 3.72 M/mcL (4.19-5.50); Red Cell Distribution Width 14.4 % (11.5-14.5)
[2019-04-04 07:47] LABS: INR 1.7; Prothrombin Time 19.4 Seconds (9.4-12.1)
[2019-04-04] MEDS: Aspirin Enteric Coated 81 MG Tablet PO SCH (08:42)
[2019-04-04] MEDS: cefTRIAXone 1,000 MG in Water for inj. (sterile) 10 ML IVP SCH (08:48)
[2019-04-04] MEDS ORDERED: amLODIPine 5 MG TABLET PO SCH (09:00)
[2019-04-04] MEDS: Azithromycin 500 MG in 0.9 % Sodium Chloride 250 ML IVPB SCH (17:10)
[2019-04-04] MEDS: Gabapentin 300 MG CAPSULE PO SCH (20:40)
[2019-04-05 04:52] LABS: Basophils % 0.4 %; Eosinophils # 0.1 K/mcL (0.0-0.6); Eosinophils % 0.9 %; Hematocrit 35.6 % (37.5-50.1); Hemoglobin 11.8 g/dL (12.9-16.9); Immature Granulocytes % 1.2 % (0-4); Lymphocytes # 0.7 K/mcL (0.6-4.6); Lymphocytes % 7.3 %; Mean Corpuscular HGB Conc 33.1 g/dL (31.6-35.5); Mean Corpuscular Hemoglobin 31.1 pg (28.0-33.3); Mean Corpuscular Volume 93.9 fL (83.0-100.0); Mean Platelet Volume 10.7 fL (9.4-12.4); Monocytes # 0.7 K/mcL (0.0-1.3); Neutrophils # 8.2 K/mcL (1.6-8.9); Platelet Count 120 K/mcL (140-400); Red Blood Count 3.79 M/mcL (4.19-5.50); Red Cell Distribution Width 14.2 % (11.5-14.5); Segmented Neutrophils % 83.2 %; White Blood Count 9.8 K/mcL (4.3-11.1)
[2019-04-05 05:08] LABS: BUN/Creatinine Ratio 26 (6-26); Blood Urea Nitrogen 26 mg/dL (8-23); Calcium 8.6 mg/dL (8.6-10.3); Carbon Dioxide 23 mEq/L (23-29); Chloride 104 mEq/L (98-107); Glucose 93 mg/dL (70-105); Magnesium 1.6 mg/dL (1.6-2.6); Osmolality,Calculated 284 (280-300); Potassium 3.8 mEq/L (3.5-5.1); Sodium 135 mEq/L (136-145); eGFR For African Americans > 60 (> 60); eGFR For Non-African Americans > 60 (> 60)
[2019-04-05] MEDS: cefTRIAXone 1,000 MG in Water for inj. (sterile) 10 ML IVP SCH (09:36)
[2019-04-05] MEDS: Aspirin Enteric Coated 81 MG Tablet PO SCH (09:37)
[2019-04-05] MEDS ORDERED: Regadenoson 0.4 MG/5 ML SYRINGE IVP ONE (11:15)
[2019-04-05] MEDS: amLODIPine 5 MG TABLET PO SCH (15:06)
[2019-04-05] MEDS: Nystatin SUSP 5 ML UD.LIQ PO SCH ×4 (17:07→21:04)
[2019-04-05] MEDS: Azithromycin 500 MG in 0.9 % Sodium Chloride 250 ML IVPB SCH (17:07)
[2019-04-05] MEDS: Gabapentin 300 MG CAPSULE PO SCH (21:04)
[2019-04-06 07:59] LABS: Basophils # 0.1 K/mcL (0.0-0.2); Basophils % 0.7 %; Eosinophils # 0.1 K/mcL (0.0-0.6); Eosinophils % 1.6 %; Immature Granulocytes % 0.4 % (0-4); Lymphocytes # 0.8 K/mcL (0.6-4.6); Lymphocytes % 10.9 %; Mean Corpuscular HGB Conc 34.2 g/dL (31.6-35.5); Mean Corpuscular Hemoglobin 30.6 pg (28.0-33.3); Mean Corpuscular Volume 89.4 fL (83.0-100.0); Mean Platelet Volume 9.8 fL (9.4-12.4); Monocytes # 0.7 K/mcL (0.0-1.3); Monocytes % 9.9 %; Neutrophils # 5.6 K/mcL (1.6-8.9); Platelet Count 129 K/mcL (140-400); Red Blood Count 4.25 M/mcL (4.19-5.50); Red Cell Distribution Width 13.6 % (11.5-14.5); Segmented Neutrophils % 76.5 %; White Blood Count 7.3 K/mcL (4.3-11.1)
[2019-04-06] MEDS: cefTRIAXone 1,000 MG in Water for inj. (sterile) 10 ML IVP SCH (08:12)
[2019-04-06] MEDS: Nystatin SUSP 5 ML UD.LIQ PO SCH ×4 (08:13→20:56)
[2019-04-06] MEDS: Aspirin Enteric Coated 81 MG Tablet PO SCH (08:13)
[2019-04-06] MEDS: amLODIPine 5 MG TABLET PO SCH (08:13)
[2019-04-06 08:19] LABS: BUN/Creatinine Ratio 21 (6-26); Blood Urea Nitrogen 20 mg/dL (8-23); Calcium 8.8 mg/dL (8.6-10.3); Carbon Dioxide 26 mEq/L (23-29); Chloride 101 mEq/L (98-107); Glucose 102 mg/dL (70-105); Osmolality,Calculated 279 (280-300); Potassium 3.8 mEq/L (3.5-5.1); Sodium 133 mEq/L (136-145); eGFR For African Americans > 60 (> 60); eGFR For Non-African Americans > 60 (> 60)
[2019-04-06] MEDS ORDERED: cefTRIAXone 1,000 MG in Water for inj. (sterile) 10 ML IVP ONE (11:42)
[2019-04-06] MEDS ORDERED: Azithromycin 250 MG TABLET PO SCH (18:00)
[2019-04-06] MEDS: Gabapentin 300 MG CAPSULE PO SCH (20:56)
[2019-04-07 02:24] LABS: Hemoglobin 13.4 g/dL (12.9-16.9); Mean Corpuscular HGB Conc 34.4 g/dL (31.6-35.5); Mean Corpuscular Hemoglobin 30.4 pg (28.0-33.3); Mean Corpuscular Volume 88.4 fL (83.0-100.0); Mean Platelet Volume 10.1 fL (9.4-12.4); Platelet Count 159 K/mcL (140-400); Red Blood Count 4.41 M/mcL (4.19-5.50); Red Cell Distribution Width 13.6 % (11.5-14.5); White Blood Count 6.8 K/mcL (4.3-11.1)
[2019-04-07 02:38] LABS: BUN/Creatinine Ratio 20 (6-26); Blood Urea Nitrogen 19 mg/dL (8-23); Carbon Dioxide 26 mEq/L (23-29); Chloride 103 mEq/L (98-107); Glucose 103 mg/dL (70-105); Magnesium 1.7 mg/dL (1.6-2.6); Osmolality,Calculated 289 (280-300); Potassium 3.8 mEq/L (3.5-5.1); Sodium 138 mEq/L (136-145); eGFR For African Americans > 60 (> 60); eGFR For Non-African Americans > 60 (> 60)
[2019-04-07 07:24] VITALS: BP 144/81
[2019-04-07] MEDS ORDERED: amLODIPine 5 MG TABLET PO SCH (09:00)
[2019-04-07] MEDS ORDERED: cefTRIAXone 2,000 MG in Water for inj. (sterile) 20 ML IVP SCH (09:00)
[2019-04-07] MEDS: Nystatin SUSP 5 ML UD.LIQ PO SCH (09:13)
[2019-04-07] MEDS: Aspirin Enteric Coated 81 MG Tablet PO SCH (09:15)
[2019-04-07] MEDS ORDERED: FLU Vac QV 19-20 (6Month+)/PF 0.5 ML SYRINGE IM ONE (12:43)
== END 2019-04-07 13:54 | disposition home or self-care (01) | DRG 698 ==
LOC: 2NENU 17:59 → EMEROOARM 17:59 → SUATTDRO 20:37 → 2NENU 20:56
PROVIDERS: ADMIT Internal Medicine; ATTEND Internal Medicine